=== PATIENT | male | born 1990 | race Caucasian/White ===

== ENCOUNTER 2017-10-08 13:23 | Emergency (ER) | payer BC ==
[~2017-10-08] VITALS: Ht 180.3 cm; Wt 89.0 kg
[2017-10-08 13:49] LABS: HEMATOCRIT 41.1 % (38.0-50.0); HEMOGLOBIN 14.5 G/DL (12.5-16.6); MCH 30.5 PG (29.0-34.0); MCHC 35.3 G/DL (30.0-36.0); MCV 86.3 FL (86-99); PLATELET COUNT 189 K/uL (156-360); RBC DIS.WIDTH-CV 12.6 % (11.8-14.6); RBC DIS.WIDTH-SD 39.4 % (39-53); RED BLOOD COUNT 4.76 M/uL (4.00-5.50)
[2017-10-08 13:58] LABS: ALBUMIN 4.5 g/dL (3.2-4.8)
[2017-10-08 13:59] LABS: CHLORIDE 106 mEq/L (99-109); SODIUM 143 mEq/L (136-147)
[2017-10-08 14:01] LABS: GLUCOSE 104 mg/dL (70-99); TOTAL PROTEIN 7.1 g/dL (6.4-8.3)
[2017-10-08 14:03] LABS: TOTAL BILIRUBIN 0.6 mg/dL (0.0-1.0)
[2017-10-08 14:04] LABS: ALKALINE PHOSPHATASE 63 IU/L (3-129)
[2017-10-08 14:05] LABS: GFR ESTIMATE (CALCULATED) > 59 mL/min/ (58.99-99999)
[2017-10-08 14:06] LABS: AST (GOT) 25 IU/L (2-34); UREA NITROGEN (BUN) 14 mg/dL (9-23)
[2017-10-08 14:08] LABS: ALT (GPT) 55 IU/L (3-49)
[2017-10-08 14:11] LABS: TROP-I INTERPRETATION NEGATIVE; TROPONIN-I < 0.01 ng/mL (0.0-0.30)
[2017-10-08] MEDS ORDERED: REGLAN10 MG PO (15:09)
[2017-10-08] MEDS ORDERED: LEVSIN0.125 MG PO (15:09)
[2017-10-08 15:28] VITALS: BP 117/78
== END 2017-10-08 15:30 | disposition home or self-care (01) ==
LOC: EME 13:23
PROVIDERS: Nurse Practitioner Family
DX: R19.7 Diarrhea, unspecified (principal); R55 Syncope and collapse
CPT/HCPCS: 70450; 71046; 80053; 84484; 85027; 93005; 99281; 99285; J7120